=== PATIENT | female | born 1945 | race Caucasian/White ===

== ENCOUNTER 2018-07-15 07:12 | Inpatient (IN) | payer MEDICARE, OTHER ==
--- NOTE | 2018-07-09 13:25 | ANES ---
Anesthesia Pre Procedure Eval HOME MEDICATIONS Atorvastatin Calcium [Lipitor] 80 mg PO DAILY 09/12/12 [Last Taken Unknown] Ca Cmb No.1/Vit D3/B-6/FA/B12 [Vitamin D3 1,000 Unit Tablet] 1 ea PO DAILY 09/12 [Last Taken Unknown] Gemfibrozil [Lopid] 2 tab PO DAILY 09/12/12 [Last Taken Unknown] [place] Seed [H[place]] 300 mg PO DAILY 09/12/12 [Last Taken Unknown] Multivitamin [Multivitamins] 1 ea PO DAILY 09/12/12 [Last Taken Unknown] metFORMIN HCL [Metformin HCl ER] 2 tab PO DAILY 09/12/12 [Last Taken Unknown] omeprazole 40 mg capsule,delayed release 40 mg PO DAILY #90 cap 06/09/18 [Last Taken Unknown] insulin human U-100 NPH-regulr 70-30 mix 100 unit/mL subcutaneous susp See Label Instructions SUB-Q .COMPLEX 06/27/18 [Last Taken Unknown] levothyroxine 75 mcg capsule 75 mcg PO DAILY 06/27/18 [Last Taken Unknown] losartan 50 mg tablet 50 mg PO DAILY 06/27/18 [Last Taken Unknown] sertraline 50 mg tablet 50 mg PO DAILY 06/27/18 [Last Taken Unknown] Allergies/Adverse Reactions: Allergies Allergy/AdvReac Type Severity Reaction Status Date / Time clarithromycin [From Biaxin] Allergy Severe angioedema Verified 07/09/18 10:43 pioglitazone HCl [From Actos] Allergy Severe angioedema Verified 07/09/18 10:43 sulfamethoxazole Allergy Severe tongue Verified 07/09/18 10:43 [From Bactrim] swelling trimethoprim [From Bactrim] Allergy Severe tongue Verified 07/09/18 10:43 swelling - Planned Procedure Planned Procedure: Right Arthroplasty Total Hip Medication List Reviewed:: Yes Allergies Verified: Yes Medical History (Last Reviewed 07/09/18 @ 13:24 by Sony Ross CRNA) Diverticulosis of colon Onset Date: Unknown Hyperlipidemia Onset Date: Unknown Primary localized osteoarthritis of hip Onset Date: ~12/04/17 Sciatica of right side Onset Date: Unknown Trochanteric bursitis of right hip Onset Date: ~12/04/17 Type 2 diabetes mellitus Onset Date: Unknown Razo's palsy Onset Date: Unknown Myalgia Onset Date: Unknown Surgical History (Last Reviewed 07/09/18 @ 13:24 by Sony Ross CRNA) H/O colonoscopy Onset Date: ~09/24/12 History of appendectomy Onset Date: ~1971 History of cholecystectomy Onset Date: ~1996 History of hysterectomy Onset Date: ~1971 History of tonsillectomy Onset Date: ~12/24/17 Family History (Last Reviewed 07/09/18 @ 13:24 by Sony Ross CRNA) Brother Brain aneurysm Daughter Diabetes Hypertension Father Mother Myocardial infarction Pancreatitis Emphysema of lung Sister Cancer Diabetes Son Diabetes Hypertension Neuropathy due to inflammatory bowel disease - Family Anesthesia History Family History:: no untoward family reactions to anesthesia - Airway/Neck/Teeth Denture Type: Partial- Upper & Lower Neck Exam: full range of motion, normal inspection - Respiratory Smoking Status: Former smoker - Cardiovascular Patient History - Cardiac/Respiratory: Hypertension - Anesthesia Assessment and Plan ASA Class: PS, III Anesthesia Type Plan: Spinal Planned difficult intubation/equipment available: No
[~2018-07-15 07:12] MED LIST: ROPIVACAINE HCL/PF 100 MG, EPINEPHrine 0.2 MG, KETOROLAC TROMETHAMINE 30 MG in NORMAL S... IJ PRN; TRANEXAMIC ACID 1,000 MG in NORMAL SALINE 100 ML IV PRN; ceFAZolin SODIUM 1 GM VIAL IV PRN
[2018-07-15] MEDS: RINGER'S SOLUTION,LACTATED 1,000 ML IV PRN ×3 (08:06→10:20)
[2018-07-15] MEDS ORDERED: ONDANSETRON HCL/PF 2 MG/ML VIAL IV PRN (11:44)
[2018-07-15] MEDS ORDERED: MAGNESIUM HYDROXIDE 30 ML UDC PO PRN (11:44)
[2018-07-15] MEDS ORDERED: ACETAMINOPHEN 500 MG TABLET PO PRN (11:44)
[2018-07-15] MEDS ORDERED: diphenhydrAMINE HCL 50 MG/ML VIAL IV PRN (11:44)
[2018-07-15] MEDS ORDERED: MAG HYDROX/ALUMINUM HYD/SIMETH 30 ML UDC PO PRN (11:44)
[2018-07-15] MEDS ORDERED: MORPHINE SULFATE 2 MG/ML DISP.SYRIN IV PRN (11:44)
[2018-07-15] MEDS ORDERED: oxyCODONE HCL/ACETAMINOPHEN 1 TAB TABLET PO PRN (11:44)
--- NOTE | 2018-07-15 11:53 | ANES ---
Post Anesthesia Discharge - Transfer of Care Transfer of Care handoff given to nurse: Yes - Discharge from PACU Discharge from PACU when meets criteria: Yes
--- NOTE | 2018-07-15 12:55 | OR ---
Operative Report - Dictated Report Narrative: Date: 07/15/2018 Preoperative diagnosis: Right hip degenerative joint disease. Postoperative diagnosis: Right hip degenerative joint disease. Procedure: Right uncemented total hip arthroplasty. Surgeon: Fady Nichole M.D. Home Inspector: Emile Brown PA-C Anesthesia: Spinal and local periarticular joint injection. Complications: None Specimens: Bone for disposal. Estimated blood loss: 300 milliliters. Retained implants: Depuy [place] size 8 femoral stem standard offset. Size 54 millimeter ouside diameter 3-hole Pace Gription acetabular cup. A 54 millimeter outside by 36 millimeter inside diameter highly cross-linked acetabular liner. 36 millimeter diameter + 5 millimeter cobalt chromium femoral head. Cancellous 6.5mm screw 30 millimeter length x2 Indications: Vicki is a 72-year-old female community ambulator who was followed in my clinic for period of time with significant complaints of right hip pain consistent with arthritic changes. She failed conservative measures including but not limited to activity modification, passage of time, medications, injections, and other conservative measures. Patient wished to proceed with surgical treatment. The risks, benefits, and alternatives were discussed in clinic. The risks of , blood clots, bleeding, infection, nerve/tendon blood vessel/ injury, malposition of components, dislocation and/or instability of joint, intraoperative fracture, postoperative limited range of motion, persistent pain, failure of components, and need for additional procedures. Patient wished to proceed. Consent was obtained after answering all questions. Procedure: After marking the correct extremity on the floor, the patient was taken to the operating room. A timeout was performed. IV antibiotics consisting of 2 g of Ancef were administered prior to the procedure. A spinal anesthetic was induced by anesthesia. A Moore catheter was inserted. The patient was then transitioned to a lateral position on a well-padded pegboard. And an axillary roll was placed. The head was in neutral position. The non- operative down leg was well-padded with SCD and ALLEN hose in place. The arms were supported and padded to protect from any undue pressure on the bony prominences and nerves. Well-padded anterior and posterior pelvic and chest posts were secured in order to maintain a stable position of the pelvis. This was placed so that the pelvis was perpendicular to the floor. The body was in line with the pelvis. Once it was felt that we had protected all the bony prominences and the patient was well secured with a safety belt as well, the leg was pre-scrubbed with alcohol, prepped and draped in a standard sterile fashion. A standard anterior lateral hip incision was marked out over the greater trochanter. Ioban drapes were then placed. The skin incision was then made. Sharp dissection with a scalpel utilizing cautery for hemostasis was carried out down to the gluteus and iliotibial band fascia. This was split in line with the skin incision. The greater trochanter bursa was excised. The anterior and posterior margins of the abductor tendon were identified. The anterior 1/3 of the tendon was tagged and reflected off the greater trochanter leaving a sleeve of tendon for repair at the completion of the case. This exposed the underlying hip joint capsule. A limb length stitch was placed in the skin and referenced off a brenda on the greater trochanter for evaluation of intraoperative limb lengths. An inverted T-type capsulotomy was made extending this up to the brim of the acetabulum. Using Homans to assist with elevation of the soft tissues off the anterior, superior, and inferior aspects of the femoral neck, the hip was then placed in a figure 4 position and the femoral head was dislocated. With the leg in an externally rotated and adducted position, the cutting flag was utilized in order to brenda for a standard femoral neck cut approximately a fingerbreadth above the level of the lesser trochanter. This was done while protecting the surrounding soft tissues with Homans. The femoral head was then removed and sized for guidance on preparation of the acetabulum. It was noted that there was loss of articular cartilage on both the femoral head and weightbearing portions of the acetabulum. We then returned the leg to the table and turned our attention to the acetabulum. While protecting the surrounding soft tissues, the labrum and remaining tissue in the fovea were excised using a scalpel and cautery. A series of reamers up to size 53 millimeter were utilized to prepare the acetabulum. The final reamer had good purchase and exposed the bleeding subchondral bone. The acetabulum was then thoroughly irrigated ensuring that all bony and cartilaginous materials were removed and the final acetabular shell was impacted into place. This was placed in approximately 45 degrees of abduction and 20 degrees of anteversion utilizing the outrigger and body axis for alignment. This had a good press fit. Two 6.5mm cancellous screw was placed in the posterior superior quadrant of the acetabulum. The shell was then thoroughly irrigated and the final polyethylene was impacted into place ensuring that it seated completely. This was then protected with a sponge while we returned our attention to the femur. With the leg in a figure 4 position utilizing Homans for soft tissue protection , a box cutting osteotome, followed by Charnley awl, followed by serial reamers and broaches were utilized in order to prepare the femur. It was found that a size 8 broach gave good axial and rotational stability. The calcar reamer was utilized in order to clean up the cut edges. The proximal femur was visualized to ensure that there were no signs of fracture. A series of heads and necks were trialed. It was found that a standard neck and a + 5 mm femoral head gave good overall stability. There was minimal longitudinal instability. With the leg in the position of sleep the femoral head was well covered. Hip range of motion was able to reach full extension and external rotation to greater than 75 degrees prior to impingement along the posterior acetabulum. The hip was able to be flexed to greater than 90 degrees with internal rotation greater than 60 degrees prior to anterior impingement. The limb lengths were near equal based on comparison to the contralateral side in the prior placed limb length stitch. At this point was felt this was the appropriately sized femoral components as well as neck and femoral head. The trial implants were removed. The femur was thoroughly irrigated. The final implants were impacted in the place and the hip was reduced. After ensuring that there was no damage to the proximal femur , the standard periarticular joint injection of ropivacaine, Toradol, and epinephrine were injected into the joint capsule and surrounding soft tissues. The capsule was repaired with interrupted #1 Vicryl. The abductor tendon was repaired utilizing #5 Ethibond. This was oversewn with #1 Vicryl. The fascia was closed with interrupted #1 Vicryl. The wounds were thoroughly irrigated as we closed in layers. The deep fat layers were closed with 0 Vicryl. The subcutaneous tissue was closed with interrupted 3-0 Vicryl and the skin with blake. All sponge, needle, blade, and instrument counts were correct prior to closing the wounds. Sterile dressings consisting of Xeroform, 4 x 4's, ABD, and tape were applied. The patient was awoken and transferred to her hospital bed and then to the postanesthesia care unit in stable condition. Postoperative condition: The plan is to admit to the medical/surgical inpatient floor postoperatively. There will be a projected 2 to 4 day hospital stay. Postoperatively 24 hours of IV antibiotics, pain control, physical therapy, occupational therapy, and medical comanagement will be utilized. Patient will be weightbearing as tolerated with anterior hip precautions. Postoperative films will be obtained in the recovery room.
--- NOTE | 2018-07-15 13:02 | ANES ---
Post Anesthesia Assessment - Vital Signs Vitals: Last Vital Signs Temp 36.6 C 07/15/18 12:32 Pulse 74 07/15/18 12:32 Resp 17 07/15/18 12:32 BP 154/80 H 07/15/18 12:32 Pulse Ox 99 07/15/18 12:05 Airway Patency: Normal - Mental Status Level Of Consciousness: Awake - Pain Level Pain Score: 0 - N/V Assessment Nausea/Vomiting Presence: None Dehydration:: No
[2018-07-15] MEDS: ceFAZolin SODIUM 2 GM in DEXTROSE 5 % IN WATER 50 ML IV SCH ×4 (13:08→22:30)
[2018-07-15] MEDS: NORMAL SALINE 1,000 ML IV PRN ×2 (13:23→19:47)
--- NOTE | 2018-07-15 16:42 | PN ---
Subjective - Date and Time Seen Date: 07/15/18 Time: 12:45 Subjective Narrative: Vicki reports doing well. Still feeling effects of anesthesia and not having any pain. No nausea or vomiting. Objective - Vitals Vitals: Last Vital Signs Temp 36.6 C 07/15/18 15:26 Pulse 88 07/15/18 15:26 Resp 17 07/15/18 15:26 BP 133/77 07/15/18 15:26 Pulse Ox 99 07/15/18 12:05 - Exam Constitutional: Present: Alert, Oriented x3, Cooperative ENT Exam: Present: hearing grossly normal Respiratory: Present: lungs clear, normal breath sounds Cardiovascular/Chest: Present: regular rate, rhythm, no murmur Appearance: Present: appropriate appearance, appropriate insight Eye contact: Present: cooperative, good eye contact, normal speech Thoughts: Present: normal thought pattern, no apparent hallucination Cauti Physician Documentation - Urinary Catheter Management Urethral (Moore) Date of Insertion: 07/15/18 Time of Insertion: 09:05 Assessment/Plan - Problems/Diagnosis (1) Status post total hip replacement, right Problem: Acute Narrative: Medically doing well, no concerns at this time. Will follow along medically. Will check labs in AM.
[2018-07-15] MEDS: HUM INSULIN NPH/REG INSULIN HM 100 UNIT/ML VIAL SC SCH (17:26)
[2018-07-15] MEDS: ROSUVASTATIN CALCIUM 20 MG TABLET PO SCH (20:03)
[2018-07-15] MEDS: SENNOSIDES/DOCUSATE SODIUM 1 TAB TABLET PO SCH (20:04)
[2018-07-15] MEDS: oxyCODONE HCL/ACETAMINOPHEN 1 TAB TABLET PO PRN (23:20)
[2018-07-16] MEDS: oxyCODONE HCL/ACETAMINOPHEN 1 TAB TABLET PO PRN ×5 (03:50→21:20)
[2018-07-16] MEDS: NORMAL SALINE 1,000 ML IV PRN (04:05)
[2018-07-16] MEDS: ceFAZolin SODIUM 2 GM in DEXTROSE 5 % IN WATER 50 ML IV SCH ×2 (05:14)
[2018-07-16 05:45] LABS: Hematocrit 28.3 % (37.0-47.0); Hemoglobin 9.3 gm/dL (12.5-16.0); Mean Cell Volume 90.7 fl (78-100); Mean Corpuscular Hemoglobin 29.8 pg (27-31); Mean Corpuscular Hgb Conc 32.9 g/dl (32-36); Mean Platelet Volume 11.8 fl (8-12.5); Platelet Count 269 K/mm3 (150-450); Red Blood Count 3.12 M/mm3 (4.2-5.4); Red Cell Distribution Width 13.4 % (11.5-14.0)
[2018-07-16 05:55] LABS: BUN/Creatinine Ratio 19.3 (9.0-21.6); Calcium * 8.2 mg/dL (7.9-10.9); Carbon Dioxide 28.3 mmol/L (24-32.6); Estimated Creat Clear 43.9; Potassium 4.3 mmol/L (3.4-4.6)
[2018-07-16] MEDS: PANTOPRAZOLE SODIUM 40 MG TABLET.EC PO SCH (07:38)
[2018-07-16] MEDS: LEVOTHYROXINE SODIUM 75 MCG TABLET PO SCH (07:38)
[2018-07-16] MEDS: GEMFIBROZIL 600 MG TABLET PO SCH (08:58)
[2018-07-16] MEDS: LOSARTAN POTASSIUM 50 MG TABLET PO SCH (08:59)
[2018-07-16] MEDS: HUM INSULIN NPH/REG INSULIN HM 100 UNIT/ML VIAL SC SCH ×2 (09:01→17:06)
[2018-07-16] MEDS: ENOXAPARIN SODIUM 40 MG/0.4 ML SYRG SC SCH (11:10)
--- NOTE | 2018-07-16 12:21 | PN ---
Subjective - Date and Time Seen Date: 07/16/18 Time: 12:21 Subjective Narrative: Doing well. Pain is controlled. No fever, chills, nausea, or vomiting. Objective - Vitals Vitals: Last Vital Signs Temp 36.5 C 07/16/18 10:45 Pulse 81 07/16/18 10:45 Resp 14 07/16/18 10:45 BP 119/58 07/16/18 10:45 Pulse Ox 96 07/16/18 10:45 - Abnormal Lab Findings Abnormal Lab Findings: Abnormal Lab Results 07/16/18 07/16/18 Range/Units 05:36 05:36 RBC 3.12 L (4.2-5.4) M/mm3 Hgb 9.3 L (12.5-16.0) gm/dL Hct 28.3 L (37.0-47.0) % Est GFR (Non-Af Amer) 52 L (60-130) mL/min Random Glucose 254 H (70-110) mg/dL - Exam Constitutional: Present: Alert, Oriented x3, Cooperative ENT Exam: Present: hearing grossly normal Respiratory: Present: lungs clear, normal breath sounds Cardiovascular/Chest: Present: regular rate, rhythm, no murmur Abdomen: Present: Normal bowel sounds, soft, nontender, nondistended Cauti Physician Documentation - Urinary Catheter Management Urethral (Moore) Date of Insertion: 07/15/18 Time of Insertion: 09:05 Date of Removal: 07/16/18 Time of Removal: 07:36 Assessment/Plan Plan Narrative: Medically doing well. Ok for discharge when ok with ortho/PT - Problems/Diagnosis (1) Status post total hip replacement, right Problem: Acute
--- NOTE | 2018-07-16 12:57 | PN ---
Subjective - Date and Time Seen Date: 07/16/18 Time: 08:15 Subjective Narrative: Patient reports no acute events. She rates her pain a 5/10. She notes her pain is worse with ambulating. She notes she has been up for transitions and walked about the room. She notes otherwise she is tolerating a p.o. diet. Objective - Vitals Vitals: Last Vital Signs Temp 36.5 C 07/16/18 10:45 Pulse 81 07/16/18 10:45 Resp 14 07/16/18 10:45 BP 119/58 07/16/18 10:45 Pulse Ox 96 07/16/18 10:45 - Abnormal Lab Findings Abnormal Lab Findings: Abnormal Lab Results 07/16/18 07/16/18 Range/Units 05:36 05:36 RBC 3.12 L (4.2-5.4) M/mm3 Hgb 9.3 L (12.5-16.0) gm/dL Hct 28.3 L (37.0-47.0) % Est GFR (Non-Af Amer) 52 L (60-130) mL/min Random Glucose 254 H (70-110) mg/dL - Exam Constitutional: Present: Alert, Cooperative, No distress Respiratory: Present: no respiratory distress Extremity: Present: other - RLE--> sensation intact to light touch, posterior tibialis pulse 2+, 5/5 plantar flexion/dorsiflexion, diffuse tenderness about her right hip, bandages clean, dry, intact Eye contact: Present: cooperative Thoughts: Present: normal thought pattern Cauti Physician Documentation - Urinary Catheter Management Urethral (Moore) Date of Insertion: 07/15/18 Time of Insertion: 09:05 Date of Removal: 07/16/18 Time of Removal: 07:36 Assessment/Plan Plan Narrative: -72-year-old female postop day 1 status post right total hip replacement -Weightbearing as tolerated with assistance, anterior precaution -PT/OT progress as tolerated -P.o. diet is tolerant -P.o. pain medication as needed -DVT prophylaxis: SCDs in bed, Lovenox, ALLEN hose -Hgb 9.3, continue to monitor -Dispo: Once all goals are met, plan to discharge home with self-care, she has her at home for assistance - Problems/Diagnosis (1) Status post total hip replacement, right Problem: Acute
[2018-07-16] MEDS: INSULIN LISPRO 100 UNITS/ML VIAL SC SCH (17:10)
[2018-07-16] MEDS: ROSUVASTATIN CALCIUM 20 MG TABLET PO SCH (21:20)
[2018-07-16] MEDS: SENNOSIDES/DOCUSATE SODIUM 1 TAB TABLET PO SCH (21:21)
[2018-07-17] MEDS: oxyCODONE HCL/ACETAMINOPHEN 1 TAB TABLET PO PRN ×3 (01:30→09:38)
[2018-07-17 05:31] LABS: Hematocrit 29.8 % (37.0-47.0); Mean Cell Volume 90.6 fl (78-100); Mean Corpuscular Hemoglobin 30.4 pg (27-31); Mean Corpuscular Hgb Conc 33.6 g/dl (32-36); Mean Platelet Volume 11.3 fl (8-12.5); Platelet Count 300 K/mm3 (150-450); Red Blood Count 3.29 M/mm3 (4.2-5.4); Red Cell Distribution Width 13.5 % (11.5-14.0); White Blood Count 12.4 K/mm3 (4.0-10.5)
[2018-07-17 05:36] LABS: Anion Gap 10.1 mmol/L (6.8-13.8); BUN/Creatinine Ratio 13.9 (9.0-21.6); Carbon Dioxide 29.3 mmol/L (24-32.6); Estimated Creat Clear 41.6; Potassium 4.4 mmol/L (3.4-4.6)
[2018-07-17] MEDS: PANTOPRAZOLE SODIUM 40 MG TABLET.EC PO SCH (06:58)
[2018-07-17] MEDS: INSULIN LISPRO 100 UNITS/ML VIAL SC SCH ×2 (06:59→11:59)
[2018-07-17] MEDS: LEVOTHYROXINE SODIUM 75 MCG TABLET PO SCH (06:59)
[2018-07-17] MEDS: GEMFIBROZIL 600 MG TABLET PO SCH (08:30)
[2018-07-17] MEDS: LOSARTAN POTASSIUM 50 MG TABLET PO SCH (08:30)
[2018-07-17] MEDS: HUM INSULIN NPH/REG INSULIN HM 100 UNIT/ML VIAL SC SCH (08:31)
[2018-07-17] MEDS: ENOXAPARIN SODIUM 40 MG/0.4 ML SYRG SC SCH (10:37)
--- NOTE | 2018-07-17 12:31 | DS ---
(1) Status post total hip replacement, right Problem: Acute Description of Stay: Patient was admitted on 07/15/2018 s/p right total hip arthroplasty for monitoring, PT/OT, pain control, and complications. She has had an uncomplicated stay. She has advanced with PT with walker. She has tolerated PO diet. Her pain is well controlled with PO pain medications. Exam today reveals RLL--> 4+/5 knee flex/ext, SILT, mild ttp diffusely over right hip, cap refill brisk. Discussed f/u in 2 weeks at orthopedic outpatient clinic. She will call with any acute questions or concerns. Dressing is changed, she can changed every 3-5 days, will maintain clean/dry dressing. -72-year-old female postop day 2 status post right total hip replacement -Weightbearing as tolerated with assistance, anterior precaution -PT/OT progress as tolerated -P.o. diet is tolerant -P.o. pain medication as needed, percocet -DVT prophylaxis ALLEN hose, lovenox for 10 days post-op followed by 6 weeks of 325 mg aspirin daily - F/u in 2 weeks at orthopedic outpatient clinic - maintain dressing clean/dry Procedures Performed: see notes below List Procedures: Right total hip arthroplasty Results and Findings: Lab Pending Results 07/16/18 05:36: WBC 9.0, RBC 3.12 L, Hgb 9.3 L, Hct 28.3 L, MCV 90.7, MCH 29.8, MCHC 32.9, RDW 13.4, Plt Count 269, MPV 11.8 07/16/18 05:36: Sodium 135, Plasma Sodium 137, Potassium 4.3, Chloride 101, Carbon Dioxide 28.3, Anion Gap 10.0, BUN 21, Creatinine 1.09, Est GFR (Non-Af Amer) 52 L, BUN/Creatinine Ratio 19.3, Random Glucose 254 H, Calcium 8.2 07/17/18 05:26: WBC 12.4 H D, RBC 3.29 L, Hgb 10.0 L, Hct 29.8 L, MCV 90.6, MCH 30.4, MCHC 33.6, RDW 13.5, Plt Count 300, MPV 11.3 07/17/18 05:26: Sodium 135, Plasma Sodium 137, Potassium 4.4, Chloride 100, Carbon Dioxide 29.3, Anion Gap 10.1, BUN 16, Creatinine 1.15, Est GFR (Non-Af Amer) 49 L, BUN/Creatinine Ratio 13.9, Random Glucose 197 H, Calcium 9.0 Discharge Location: Home Disposition: Home self-care Condition: Good Discharge Activity: Activity as tolerated, Weight bearing Discharge Diet: General/regular food Referrals: Lowell Carbone DO [Primary Care Provider] - Problem Oriented Discharge Instructions to Patient/Family: How and Where to Give Subcutaneous Enoxaparin Injections Print Language (Nauruan or South African Available): Nauruan Additional Patient Instructions (free text): Physical Therapy rehab at [facility] Therapy on Saturday at 10:45. Follow up Orthopedic appointment with Dr Nichole on Saturday07/30/08 at 9:45am. Prescriptions (Any new or edited meds): Enoxaparin Sodium [Lovenox] 40 mg SC Q24H #8 disp.syrin oxyCODONE HCL/ACETAMINOPHEN [Percocet 5 MG/325 MG] 1 - 2 tab PO Q4H PRN #90 tab PRN Reason: Severe Pain (Pain Scale 7-10) Complete Home Medications List: Complete Home Medication List: Atorvastatin Calcium [Lipitor] 80 mg PO DAILY 09/12/12 Ca Cmb No.1/Vit D3/B-6/FA/B12 [Vitamin D3 1,000 Unit Tablet] 1 ea PO DAILY 09/12 Gemfibrozil [Lopid] 2 tab PO DAILY 09/12/12 [place] Seed [[place]] 300 mg PO DAILY 09/12/12 Multivitamin [Multivitamins] 1 ea PO DAILY 09/12/12 omeprazole 40 mg capsule,delayed release 40 mg PO DAILY #90 cap 06/09/18 insulin human U-100 NPH-regulr 70-30 mix 100 unit/mL subcutaneous susp See Label Instructions SUB-Q .COMPLEX 06/27/18 levothyroxine 75 mcg capsule 75 mcg PO DAILY 06/27/18 losartan 50 mg tablet 50 mg PO DAILY 06/27/18 sertraline 50 mg tablet 50 mg PO DAILY 06/27/18 Turmeric Root Extract [Turmeric] 500 mg PO DAILY 07/09/18 metFORMIN HCL [Metformin HCl] 1,000 mg PO BID 07/15/18 Enoxaparin Sodium [Lovenox] 40 mg SC Q24H #8 disp.syrin 07/17/18 Sennosides/Docusate Sodium [Senokot-S] 2 tab PO HS tablet 07/17/18 oxyCODONE HCL/ACETAMINOPHEN [Percocet 5 MG/325 MG] 1 - 2 tab PO Q4H PRN #90 tab 07/17/18 Amb Orders for Discharge: PT Evaluation and Treatment* Location: None Selected
[2018-07-17 13:23] VITALS: BP 109/74
== END 2018-07-17 13:35 | disposition home or self-care (01) | DRG 470 ==
LOC: MS 07:12
PROVIDERS: ADMIT Orthopaedic Surgery; ATTEND Orthopaedic Surgery
CPT/HCPCS: 36415; 73502; 80048; 85027; 97110; 97116; 97161; 97165; 97530; 97535